=== PATIENT | female | born 1945 | race American Indian/Alaskan Native ===

== ENCOUNTER 2016-10-31 16:01 | Outpatient (CLI) | payer MEDICARE | END 2016-10-31 16:02 | disposition home or self-care (01) | LOC: LABHHL 16:01 → LAB 16:01 | PROVIDERS: ATTEND Surgery | DX: N63 Unspecified lump in breast (principal) | CPT/HCPCS: 88305; 88307 ==

== ENCOUNTER 2017-03-21 13:06 | Outpatient (CLI) | payer MEDICARE ==
--- NOTE | 2017-03-22 15:15 | Magnetic Resonance Report ---
BILATERAL BREAST MRI WITHOUT AND WITH CONTRAST: The 03/21/17 CLINICAL: Breast cancer survivor status post right mastectomy with latissimus dorsi flap and implant reconstruction for high-grade DCIS. Status post reduction mammoplasty and implant of the left breast. She had subsequent readjustment of the right implant. She did not complete postoperative chemotherapy. She had an excisional biopsy of a benign right palpable chest wall nodule 10/31/16. COMPARISON: 10/21/16 bilateral mammogram. TECHNIQUE: Axial 1.0-mm T1 without, axial high resolution 2.0-mm T2, , axial STIR and axial and sagittal STIR with silicon excitation water saturation, sagittal T2 and axial 1.0-mm dynamic Vibrant high-resolution postcontrast T1 fat saturation sequences on a 1.5 Viji magnet. The examination was performed with an 8 channel dedicated [place] breast coil. Post processing with CAD and subtraction was performed on an [employer] workstation. 14.0 cc of Multihance was injected without incident for the contrast portion of the exam. Consent was obtained prior to the administration of the contrast. FINDINGS: Right: Minimal background parenchymal enhancement. No mass or suspicious enhancement of the right breast. The right breast implant is intact. No suspicious right axillary or right internal mammary lymph nodes. Left: Minimal background parenchymal enhancement. No mass or suspicious enhancement of the left breast. The left breast implant is intact. No suspicious left axillary or left internal mammary lymph nodes. IMPRESSION: Negative study with intact implants. No evidence of tumor. BIRADS 2 - - Benign RECOMMENDATION: Routine mammographic screening of the left breast.
== END 2017-03-21 13:07 | disposition home or self-care (01) ==
LOC: SPVIMAG 13:06
PROVIDERS: ATTEND Surgery
DX: C50.911 Malignant neoplasm of unspecified site of right female breast (principal); Z90.11 Acquired absence of right breast and nipple; Z98.82 Breast implant status
CPT/HCPCS: 0159T; 82962; A9577; C8908; 77059